=== PATIENT | female | born 1970 | race American Indian/Alaskan Native ===

== ENCOUNTER 2021-05-30 14:27 | Emergency (ER) | payer MEDICAID ==
[2021-05-30] MEDS ORDERED: ACETAMINOPHEN 325 MG TAB PO ONE (18:20)
--- NOTE | 2021-05-30 18:20 | Emergency Department Report ---
ED General Adult HPI - General Chief complaint: Chest Pain Stated complaint: CHEST PAIN PUI?: No Time Seen by Provider: 05/30/21 18:19 Source: patient Mode of arrival: Ambulatory Limitations: No Limitations - History of Present Illness Initial comments: 50-year-old -[place] female with a past medical history of thyroid di sease presents to the ER today with complaints of right upper chest pain. Patient states that she has been having this pain off and on for about a year, but today pain felt worse. She described as a stabbing pain pain. She also felt like someone had punched her in her chest. She said that the pain was worse with movements of her right upper arm, and also movement of her neck. She denies any injury to her chest recently. She states that she did some heavy lifting about a month ago but nothing recently. She denies any nausea, vomiting, pleuritic pain, shortness of breath, URI symptoms, cough, fever or chills. She states that this is her first time getting checked out since has been having the pain. She denies any tobacco use, illicit drug use, alcohol abuse. MD Complaint: Right sided upper chest pain -: year(s) - Related Data Previous Rx's Medication Instructions Recorded Last Taken Type Ketorolac [Toradol] 10 mg PO Q6H PRN #20 tab 05/30/21 Unknown Rx Allergies Allergy/AdvReac Type Severity Reaction Status Date / Time No Known Allergies Allergy Verified 05/30/21 14:37 ED Review of Systems ROS: Stated complaint: CHEST PAIN Other details as noted in HPI Comment: All other systems reviewed and negative Constitutional: denies: chills, fever Eyes: denies: eye pain, eye discharge, vision change ENT: denies: ear pain, throat pain, dental pain, hearing loss, epistaxis, congestion Respiratory: denies: cough, orthopnea, shortness of breath, SOB with exertion, SOB at rest, stridor, wheezing Cardiovascular: chest pain. denies: palpitations, dyspnea on exertion, orthopnea, edema, syncope, paroxysmal nocturnal dyspnea Gastrointestinal: denies: abdominal pain, nausea, diarrhea, constipation, hematemesis, melena, hematochezia Genitourinary: denies: urgency, dysuria, frequency, hematuria, discharge, abnormal menses, dyspareunia Musculoskeletal: denies: back pain, joint swelling, arthralgia, myalgia Skin: denies: rash, lesions, change in color, change in hair/nails, pruritus Neurological: denies: headache, weakness, numbness, paresthesias, confusion, abnormal gait, vertigo Psychiatric: denies: anxiety, depression, auditory hallucinations, visual hallucinations, homicidal thoughts, suicidal thoughts Hematological/Lymphatic: denies: easy bleeding, easy bruising, swollen glands ED Past Medical Hx - Past Medical History Hx Arthritis: Yes - Medications Home Medications: Home Medications Medication Instructions Recorded Confirmed Last Taken Type Ketorolac [Toradol] 10 mg PO Q6H PRN #20 tab 05/30/21 Unknown Rx ED Physical Exam - General Limitations: No Limitations General appearance: alert, in no apparent distress - Head Head exam: Present: atraumatic, normocephalic, normal inspection - Eye Eye exam: Present: normal appearance, PERRL, EOMI Pupils: Present: normal accommodation - Neck Neck exam: Present: normal inspection, full ROM. Absent: meningismus - Respiratory Respiratory exam: Present: normal lung sounds bilaterally, chest wall tenderness (right upper anterior chest wall ). Absent: respiratory distress, wheezes, rales, rhonchi, stridor - Cardiovascular Cardiovascular Exam: Present: regular rate, normal rhythm, normal heart sounds - GI/Abdominal GI/Abdominal exam: Present: soft. Absent: distended, tenderness, guarding, rebound, rigid - Extremities Exam Extremities exam: Present: normal inspection, full ROM. Absent: tenderness, ped al edema, calf tenderness - Neurological Exam Neurological exam: Present: alert, oriented X3, CN II-XII intact, normal gait - Psychiatric Psychiatric exam: Present: normal affect, normal mood - Skin Skin exam: Present: intact ED Course Vital Signs 05/30/21 14:42 Temperature 99 F Pulse Rate 84 Respiratory 16 Rate Blood Pressure 144/96 [Left] O2 Sat by Pulse 100 Oximetry ED Medical Decision Making - EKG Data EKG shows normal: sinus rhythm Rate: normal (88) - EKG Data Interpretation: normal EKG - Radiology Data Radiology results: report reviewed Patient: SANA MOLINA MR#: [id number] : 1970 Acct:[id number] Age/Sex: 50 / F ADM Date: 05/30/21 Loc: ED Attending Dr: Ordering Physician: CHARANJIT MASTERSON Date of Service: 05/30/21 Procedure(s): XR chest routine 2V Accession Number(s): [id number] cc: CHARANJIT MASTERSON Fluoro Time In Minutes: CHEST 2 VIEWS INDICATION: right sided chest pain. COMPARISON: None. FINDINGS: Support devices: None. Heart: Within normal limits. Lungs/Pleura: No acute air space or interstitial disease. No significant pleural effusion. IMPRESSION: No acute findings. Signer Name: Jadon Lugo MD Signed: 05/30/2021 6:48 PM Workstation Name: [id number] Transcribed By: ES Dictated By: Jadon Lugo MD Electronically Authenticated By: Jadon Lugo MD Signed Date/Time: 05/30/211847 DD/ 47 TD/TT: - Medical Decision Making Chest x-ray shows nothing acute. EKG normal without any signs of STEMI or significant dysrhythmia. Troponin normal. The patient is resting comfortably and, is alert and in no distress. Patient has a heart score of 1. She has PERC score of 0. Patient has been having these symptoms off and on for about a year and therefore likely chronic. She does have reproducible chest wall tenderness and this could be musculoskeletal in nature the history, exam, diagnostic testing and current condition do not suggest that this patient is having acute myocardial infarction, significant arrhythmia, unstable angina , esophageal perforation, pulmonary embolism, aortic dissection, pneumothorax, severe pneumonia, sepsis or other significant pathology that would warrant further testing, continued ED treatment, admission or cardiology or other specialist consultation at this time. The vital signs have been stable. Discussed all results with patient. Discussed suspected diagnosis and recommend that she follows up with her primary care doctor. The patient's condition is stable and appropriate for discharge. The patient will pursue further outpatient evaluation with the primary care physician, or other designated physician or automatic nailing machine operator. The patient and/or caregivers have expressed a clear and thorough understanding and agreed to follow-up as instructed. Critical care attestation.: If time is entered above; I have spent that time in minutes in the direct care of this critically ill patient, excluding procedure time. ED Disposition Clinical Impression: Nonspecific chest pain, Chest wall pain Disposition: HOME / SELF CARE / HOMELESS Is pt being admited?: No Does the pt Need Aspirin: No Condition: Stable Instructions: Chest Wall Pain, [id number], Nonspecific Chest Pain, Adult Additional Instructions: Take the toradol as prescribed. I recommend following up with your primary care physician in 1 week. Return to ED if worse. Prescriptions: Ketorolac [Toradol] 10 mg PO Q6H PRN #20 tab PRN Reason: Pain Referrals: PRIMARY CARE,MD [Primary Care Provider] - 3-5 Days Time of Disposition: 19:16 HEART Score - HEART Score History: Slightly suspicious EKG: Normal Age: 45-65 Risk factors: No known risk factors Troponin: Troponin T < 0.010 ng/mL (0.00-0.029) 05/30/21 18:25 Troponin: < normal limit HEART Score: 1 - Critical Actions Critical Actions: 0-3 pts:0.9-1.7%risk of adverse cardiac event.Candidate for discharge
--- NOTE | 2021-05-30 18:52 | XRay Report ---
CHEST 2 VIEWS INDICATION: right sided chest pain. COMPARISON: None. FINDINGS: Support devices: None. Heart: Within normal limits. Lungs/Pleura: No acute air space or interstitial disease. No significant pleural effusion. IMPRESSION: No acute findings. Signer Name: Jadon Lugo MD Signed: 05/30/2021 6:48 PM Workstation Name: [id number]
[2021-05-30 19:36] VITALS: BP 169/85
--- NOTE | 2021-05-31 09:19 | Electrocardiograph Report ---
[facility] Test Date: 2021-05-30 Test Time: 14:34:23 Pat Name: SANA MOLINA Department: Room: Gender: F Supplemental Manager: PATRICIA : 1970 Requested By: RIRI BESS Order Number: [id number] Reading MD: Jose Duckworth Measurements Intervals [place] Rate: 88 P: 51 OR: 153 QRS: 20 QRSD: 73 T: 40 QT: 379 QTc: 458 Interpretive Statements Sinus rhythm Probable left atrial enlargement No previous ECG available for comparison Electronically Signed On 05-31-2021 9:19:01 EST by Jose Duckworth
== END 2021-05-30 19:37 | disposition home or self-care (01) ==
LOC: ED 14:27
DX: R07.9 Chest pain, unspecified (principal); R07.89 Other chest pain
CPT/HCPCS: 36415; 71046; 84484; 93005; 99284